=== PATIENT | male | born 1990 | race Caucasian/White ===

== ENCOUNTER 2018-05-31 12:10 | Emergency (ER) | payer MEDICAID ==
[~2018-05-31] VITALS: Ht 177.8 cm; Wt 63.5 kg
[2018-05-31 12:32] VITALS: BP 124/78
== END 2018-05-31 16:40 | disposition left against medical advice (07) ==
LOC: EDBD 12:10 → ER 12:10
DX: R55 Syncope and collapse (principal); Z53.21 Procedure and treatment not carried out due to patient leaving prior to being seen by health care provider
CPT/HCPCS: 93005